=== PATIENT | female | born 1995 | race Caucasian/White ===

== ENCOUNTER 2017-01-27 00:27 | Emergency (ER) | payer OTHER | END 2017-01-27 01:02 | disposition home or self-care (01) | LOC: ER 00:27 | DX: O99.89 Other specified diseases and conditions complicating pregnancy, childbirth and the puerperium (principal); R10.30 Lower abdominal pain, unspecified; R10.2 Pelvic and perineal pain; R19.7 Diarrhea, unspecified; F17.210 Nicotine dependence, cigarettes, uncomplicated; Z3A.16 16 weeks gestation of pregnancy | CPT/HCPCS: 36415 ==

== ENCOUNTER 2017-02-04 14:47 | Emergency (ER) | payer OTHER | END 2017-02-04 19:50 | disposition left against medical advice (07) | LOC: ER 14:47 | DX: O46.92 Antepartum hemorrhage, unspecified, second trimester (principal); R10.2 Pelvic and perineal pain; Z3A.19 19 weeks gestation of pregnancy | CPT/HCPCS: 36415; 96372; J2791 ==